=== PATIENT | male | born 1970 | race Caucasian/White ===

== ENCOUNTER 2021-01-02 20:24 | Emergency (ER) | payer BC ==
[2021-01-02] MEDS ORDERED: Sodium Chloride 0.9% 2.5 ML Syringe FLUSH PRN (22:10)
[2021-01-02] MEDS ORDERED: Sodium Chloride 0.9% 10 ML Syringe FLUSH PRN (22:10)
[2021-01-02 22:57] LABS: BLOOD UREA NITROGEN,BUN 9 mg/dL (7.0-18.0); CARBON DIOXIDE,CO2 26.8 mmol/L (21.0-32.0); CHLORIDE,CL 104 mmol/L (98-107); GLUCOSE RANDOM 98 mg/dL (74-106); POTASSIUM,K 3.5 mmol/L (3.5-5.1); SODIUM,NA 138 mmol/L (136-148)
--- NOTE | 2021-01-03 00:19 | US ---
INDICATION: Bilateral leg swelling. COMPARISON: None available FINDINGS: Ultrasound of the venous drainage of both lower extremities shows no evidence of deep venous thrombosis. There is normal antegrade flow from the posterior tibial and peroneal veins superiorly through the common femoral vein in both legs. There is normal augmentation and compressibility of these veins. There is extensive superficial venous thrombosis on the right, with the greater saphenous vein thrombosed beginning 1.6 centimeters from the common femoral junction through the distal calf. The left lower extremity shows no sign of superficial venous thrombosis. IMPRESSION: Extensive occlusive right superficial venous thrombosis, with thrombosis of the greater saphenous vein beginning 1.6 centimeters from the saphenous femoral junction and extending through the inferior calf. No evidence of deep venous thrombosis of either lower extremity. No evidence of superficial venous thrombosis on the left. Dictated by Edis Ku MD @ Jan 03 2021 12:11AM Signed by Dr. Edis Ku @ Jan 03 2021 12:17AM
--- NOTE | 2021-01-03 00:47 | EDM.PDOC ---
ED HPI GENERAL MEDICAL PROBLEM - General Chief Complaint: Lower Extremity Injury/Pain Stated Complaint: RT LEG PAIN Time Seen by Provider: 01/02/21 22:06 - History of Present Illness INITIAL COMMENTS - FREE TEXT/NARRATIVE: HISTORY AND PHYSICAL: History of present illness: This is a 50-year-old gentleman with no significant history of hypertension, diabetes, liver, lung, kidney problems who presents to the ER today secondary to bilateral lower extremity swelling that started approximately 3 to 4 weeks ago. Patient reports that he went to hospital in [facility] and had an ultrasound and was told that there were no clots. Patient reports that since his visit to [facility] he has had persistent swelling without any improvement. Patient reports over the last couple days he has had increasing pain to his lower ex tremity secondary to throbbing pain and swelling. Patient denies any recent fevers, shakes, chills, nausea, vomiting, diarrhea, dysuria, frequency, urgency, chest pain, shortness of breath. Patient denies any orthopnea, PND, dyspnea on exertion. Patient reports he does have a history of gastritis in the past, patient denies any melena or bright red blood per rectum. Patient denies any hemoptysis, cough, shortness of breath. Review of systems: As per history of present illness and below otherwise all systems reviewed and negative. Past medical history: As per history of present illness and as reviewed below otherwise noncontributory. Surgical history: As per history of present illness and as reviewed below otherwise noncontributory. Social history: No reported history of drug or alcohol abuse. Family history: As per history of present illness and as reviewed below otherwise noncontributory. Physical exam: This patient was seen and evaluated during the 2019 SARS-CoV-2 novel coronavirus pandemic period. Community viral transmission is ongoing at time of this encounter and the emergency department is operating under pandemic response procedures. Constitutional: Patient is oriented to person, place, and time. Appears well- developed and well-nourished. No distress. HEENT: Moist mucous membranes Head: Normocephalic and atraumatic Eyes: Right eye exhibits no discharge. Left eye exhibits no discharge. No scleral icterus Neck: Normal range of motion. No tracheal deviation present. Cardiovascular: Normal rate and regular rhythm. Pulmonary: Effort normal, no respiratory distress. Abdominal: No distention Musculoskeletal: Normal range of motion Neurologic: Alert and oriented to person, place and time. Skin: [place], warm and dry. Psychiatric: Normal mood and affect. Behavior is normal. Judgment and thought content normal. Nursing note and vital signs have been reviewed Patient's ER physical exam is significant for 2+ bipedal edema in the left and right pretibial region. Patient has good bounding pulses in his DP/PT bilaterally. Patient has good capillary refill bilaterally. Patient has no calf tenderness or Homans' sign. Diagnostics: Ultrasound of left and right lower extremities reveal no evidence of deep vein thrombosis of either lower extremity. There is no evidence of superficial vein thrombosis on the left. There is extensive occlusive right superficial venous thrombosis with thrombosis of the greater saphenous vein beginning 1.6 cm from the saphenofemoral junction and extending through the inferior calf. Assessment and plan: This is a 50-year-old gentleman who presents ER today secondary to subacute onset of bilateral lower extremity edema with right greater than left resulting in discomfort. Patient had ultrasound at [facility] which not reveal any acute DVTs. Patient's ultrasound today did not reveal any deep vein thrombosis in either lower extremity however there was extensive occlusive right superf icial vein thrombosis with thrombosis in the greater saphenous vein noted in the right lower extremity. This is likely the cause of the patient's increasing swelling on the right side that he was complaining of. Patient reports that the right side is causing him discomfort in the left side is not really causing him any pain. I have discussed with the patient the test results. Given that he does not have a deep vein thrombosis, I would be reluctant to start him on any anticoagulants. I have recommended that the patient start on a baby aspirin daily. Patient will need to follow-up with his primary care physician for reevaluation and follow-up. Reassessment at the time of disposition demonstrates that the patient is in no acute distress. The patient has remained stable throughout the entire ED visit and is without objective evidence for acute process requiring urgent intervention or hospitalization. The patient is stable for discharge, counseling is provided as documented above, discussed symptomatic treatment and specific conditions for return. I have spoken with the patient/caregiver and discussed todays findings, in addition to providing specific details for the plan of care. Questions are answered and there is agreement with the plan. Definitive disposition and diagnosis as appropriate pending reevaluation and review of above. right lower extremity Pain Score (Numeric/FACES): 7 - Related Data Allergies Allergy/AdvReac Type Severity Reaction Status Date / Time No Known Allergies Allergy Verified 01/02/21 21:26 Home Meds: Home Meds Escitalopram [Lexapro] 20 mg PO DAILY 01/02/21 [History] Past Medical History Psychiatric History: Reports: Anxiety - Infectious Disease History Infectious Disease History: Reports: Chicken Pox - Past Surgical History GI Surgical History: Reports: Cholecystectomy Social & Family History - Family History Family Medical History: No Pertinent Family History - Caffeine Use Caffeine Use: Reports: Soda - Recreational Drug Use Recreational Drug Use: No Review of Systems - Review of Systems Review Of Systems: See Below ED EXAM, GENERAL - Physical Exam Exam: See Below #1 Interpretation EKG Interpretation Comments: EKG: As interpreted by ER physician: Peyton: Nonspecific ST-T wave abnormalities Normal axis No evidence of ST elevation SC Normal sinus rhythm heart rate of 86 Course - Vital Signs Last Recorded V/S: Last Vital Signs Temp 97.3 F 01/03/21 00:55 Pulse 81 01/03/21 00:55 Resp 18 01/03/21 00:55 BP 115/77 01/03/21 00:55 Pulse Ox 96 01/03/21 00:55 - Orders/Labs/Meds Orders: Active Orders 24 hr Category Date Time Status Saline Lock Insert [OM.PC] Stat Oth 01/02/21 22:10 Ordered Labs: Laboratory Tests 01/02/21 01/02/21 01/02/21 Range/Units 22:25 22:25 22:25 WBC 10.39 (4.0-11.0) K/uL RBC 5.21 (4.50-5.90) M/uL Hgb 17.0 (13.0-17.0) g/dL Hct 47.8 (38.0-50.0) % MCV 91.7 (80.0-98.0) fL MCH 32.6 H (27.0-32.0) pg MCHC 35.6 (31.0-37.0) g/dL RDW Std Deviation 42.5 (28.0-62.0) fl RDW Coeff of Yamileth 13 (11.0-15.0) % Plt Count 222 (150-400) K/uL MPV 10.20 (7.40-12.00) fL Neut % (Auto) 61.4 (48.0-80.0) % Lymph % (Auto) 24.9 (16.0-40.0) % Gilmer % (Auto) 12.7 (0.0-15.0) % Eos % (Auto) 0.7 (0.0-7.0) % Baso % (Auto) 0.3 (0.0-1.5) % Neut # (Auto) 6.4 H (1.4-5.7) K/uL Lymph # (Auto) 2.6 H (0.6-2.4) K/uL Gilmer # (Auto) 1.3 H (0.0-0.8) K/uL Eos # (Auto) 0.1 (0.0-0.7) K/uL Baso # (Auto) 0.0 (0.0-0.1) K/uL Nucleated RBC % 0.0 /100WBC Nucleated RBCs # 0 K/uL ESR 2 (0-19) mm/hr Sodium 138 (136-148) mmol/L Potassium 3.5 (3.5-5.1) mmol/L Chloride 104 (98-107) mmol/L Carbon Dioxide 26.8 (21.0-32.0) mmol/L BUN 9 (7.0-18.0) mg/dL Creatinine 1.1 (0.8-1.3) mg/dL Est Cr Clr Drug Dosing 94.96 mL/min Estimated GFR (MDRD) > 60.0 ml/min Glucose 98 (74-106) mg/dL Calcium 10.7 H (8.5-10.1) mg/dL Total Bilirubin 0.5 (0.2-1.0) mg/dL AST 21 (15-37) IU/L ALT 39 (14-63) IU/L Alkaline Phosphatase 123 H (46-116) U/L Troponin I < 0.050 (0.000-0.056) ng/mL C-Reactive Protein 1.00 H (0.00-0.90) mg/dL Total Protein 6.8 (6.4-8.2) g/dL Albumin 3.6 (3.4-5.0) g/dL Globulin 3.2 (2.6-4.0) g/dL Albumin/Globulin Ratio 1.1 (0.9-1.6) Meds: Medications Discontinued Medications Generic Name Dose Route Start Last Admin Trade Name Freq PRN Reason Stop Dose Admin Sodium Chloride 10 ml 01/02/21 22:10 Sodium Chloride 0.9% 10 Ml Syringe FLUSH ASDIRECTED PRN Keep Vein Open Sodium Chloride 2.5 ml 01/02/21 22:10 Sodium Chloride 0.9% 2.5 Ml Syringe FLUSH ASDIRECTED PRN Keep Vein Open Departure - Departure Time of Disposition: 00:47 Disposition: Home, Self-Care 01 Condition: Good Clinical Impression: Thrombophlebitis of superficial veins of right lower extremity - Discharge Information Instructions: Thrombophlebitis Referrals: PCP,None [Primary Care Provider] - Forms: ED Department Discharge Additional Instructions: You were seen and evaluated in the ER today secondary to swelling and discomfort in your right lower extremity as well as swelling in your left lower extremity. The ultrasound that we obtained today did not reveal any deep venous clots in either leg however you do have evidence of superficial vein clot in your right leg which is likely contributing to the swelling and the pain and discomfort. Please make an appointment to see your family doctor in the next 1 to 2 days for reevaluation and follow-up. Please take a baby aspirin daily. The following information is given to patients seen in the emergency department who are being discharged to home. This information is to outline your options for follow-up care. We provide all patients seen in our emergency department with a follow-up referral. The need for follow-up, as well as the timing and circumstances, are variable depending upon the specifics of your emergency department visit. If you don't have a primary care physician on staff, we will provide you with a referral. We always advise you to contact your personal physician following an emergency department visit to inform them of the circumstance of the visit and for follow-up with them and/or the need for any referrals to a consulting sp ecialist. The emergency department will also refer you to a specialist when appropriate. This referral assures that you have the opportunity for follow-up care with a specialist. All of these measure are taken in an effort to provide you with optimal care, which includes your follow-up. Under all circumstances we always encourage you to contact your private physician who remains a resource for coordinating your care. When calling for follow-up care, please make the office aware that this follow-up is from your recent emergency room visit. If for any reason you are refused follow-up, please contact the [facility] Emergency Department at and asked to speak to the emergency department charge nurse. [facility] [address] [place] [id number] [facility] [address] [place] [id number] Sepsis Event Note (ED) - Evaluation Sepsis Screening Result: No Definite Risk - Focused Exam Vital Signs: Vital Signs Temp Pulse Resp BP Pulse Ox 01/03/21 00:55 97.3 F 81 18 115/77 96 01/02/21 21:27 97.8 F 96 18 130/73 96 - My Orders Last 24 Hours: My Active Orders 01/02/21 22:10 Saline Lock Insert [OM.PC] Stat - Assessment/Plan Last 24 Hours: My Active Orders 01/02/21 22:10 Saline Lock Insert [OM.PC] Stat
== END 2021-01-03 00:55 | disposition home or self-care (01) ==
LOC: MW.ED 20:24
DX: I80.01 Phlebitis and thrombophlebitis of superficial vessels of right lower extremity (principal); Z90.49 Acquired absence of other specified parts of digestive tract
CPT/HCPCS: 36415; 80053; 84484; 85025; 85652; 86140; 93005; 93010; 93970; 93970-26; 99284; 99284-25